=== PATIENT | female | born 1980 | race Two or more races ===

== ENCOUNTER 2017-08-30 16:57 | Emergency (ER) | payer BC, OTHER ==
[~2017-08-30] VITALS: Ht 154.9 cm; Wt 84.1 kg
[2017-08-30 17:04] VITALS: BP 122/78
[2017-08-30] MEDS ORDERED: DIAZEPAM 5 MG TABLET ONE (17:24)
[2017-08-30] MEDS ORDERED: KETOROLAC 30 MG/1 ML ONE (17:24)
[2017-08-30] MEDS ORDERED: DIAZEPAM 5 MG TABLET PO ONE (17:30)
[2017-08-30] MEDS ORDERED: KETOROLAC 30 MG/1 ML IM ONE (17:30)
== END 2017-08-30 19:42 | disposition home or self-care (01) ==
LOC: ED 19:22
DX: S16.1XXA Strain of muscle, fascia and tendon at neck level, initial encounter (principal); S39.012A Strain of muscle, fascia and tendon of lower back, initial encounter; M51.36 Other intervertebral disc degeneration, lumbar region; V89.2XXA Person injured in unspecified motor-vehicle accident, traffic, initial encounter; Y93.89 Activity, other specified; Y92.410 Unspecified street and highway as the place of occurrence of the external cause; Y99.8 Other external cause status
CPT/HCPCS: 72072; 72110; 72125; 96372; 99284; J1885